=== PATIENT | female | born 1990 | race American Indian/Alaskan Native ===

== ENCOUNTER 2018-09-23 22:53 | Inpatient (IN) | payer OTHER ==
[2018-09-23] MEDS ORDERED: NACL 0.9% 1000 ML 1,000 ML IV ONE (23:38)
[2018-09-23] MEDS ORDERED: TORADOL IV ONE (23:38)
[2018-09-23] MEDS ORDERED: MORPHINE IV ONE (23:38)
[2018-09-23] MEDS ORDERED: DECADRON IV ONE (23:39)
--- NOTE | 2018-09-23 23:42 | Emergency Department Report ---
ED Back Pain/Injury HPI - General Chief Complaint: Back Pain/Injury Stated Complaint: BACK PAIN Time Seen by Provider: 09/23/18 23:21 Source: patient, EMS Limitations: Physical Limitation - History of Present Illness Initial Comments: 28-year-old female presents to ED with lower back pain. The patient states this morning, as she was getting up from bed, she attempted to stand and felt a sudden sharp pain in her lower back. This caused her to collapse to the floor. Patient reports the pain was so extreme, but she was unable to move. Patient states she was on the floor from 9 AM to 12 noon, when her sister arrived. Patient states her sisters were able to help her up. Patient denies radiating pain into the legs,weakness of her legs, numbness or tingling of the legs. Patient denies bowel or bladder incontinence. Reports she took oxycodone and Flexeril. She states she is still having pain, so called EMS for transport to the ER. Patient denies any history of back pain. Denies fever, recent illness. MD Complaint: back pain -: Sudden, This morning Similar Symptoms Previously: No Place: home Radiation: none Severity: severe Quality: sharp Consistency: intermittent Improves With: immobilization Worsens With: movement Associated Symptoms: difficulty walking. denies: weakness, numbness, difficulty urinating, incontinence, fever/chills, abdominal pain Treatments Prior to Arrival: prescription analgesics - Related Data Allergies Allergy/AdvReac Type Severity Reaction Status Date / Time No Known Allergies Allergy Verified 09/24/18 00:43 ED Review of Systems ROS: Stated complaint: BACK PAIN Other details as noted in HPI Comment: All other systems reviewed and negative Constitutional: denies: chills, fever Gastrointestinal: denies: abdominal pain Genitourinary: other (denies incontinence) Musculoskeletal: back pain Neurological: denies: weakness, numbness, paresthesias ED Past Medical Hx - Past Medical History Previous Medical History?: No - Surgical History Past Surgical History?: No - Social History Smoking Status: Never Smoker Substance Use Type: None ED Physical Exam - General Limitations: Physical Limitation General appearance: alert, in no apparent distress - Head Head exam: Present: atraumatic, normocephalic - Eye Eye exam: Present: normal appearance - ENT ENT exam: Present: mucous membranes moist - Neck Neck exam: Present: normal inspection - Respiratory Respiratory exam: Present: normal lung sounds bilaterally. Absent: respiratory distress - Cardiovascular Cardiovascular Exam: Present: regular rate, normal rhythm - GI/Abdominal GI/Abdominal exam: Present: soft. Absent: distended, tenderness - Extremities Exam Extremities exam: Present: normal inspection - Back Exam Back exam: Present: tenderness (midline; lower lumbar region around L5, sacrum), muscle spasm - Neurological Exam Neurological exam: Present: alert, oriented X3. Absent: motor sensory deficit (sensation normal and strength 5/5 in all 4 extremities) - Psychiatric Psychiatric exam: Present: normal affect, normal mood - Skin Skin exam: Present: warm, dry, intact, normal color ED Course Vital Signs 09/23/18 09/23/18 09/23/18 23:20 23:21 23:31 Temperature 98.3 F Pulse Rate 66 Respiratory 16 Rate Blood Pressure 105/69 Blood Pressure 105/69 [Right] O2 Sat by Pulse 82 L 100 100 Oximetry 09/23/18 09/23/18 09/24/18 23:45 23:59 00:01 Temperature Pulse Rate Respiratory Rate Blood Pressure 105/69 113/67 113/67 Blood Pressure [Right] O2 Sat by Pulse 100 100 100 Oximetry 09/24/18 09/24/18 09/24/18 00:05 00:31 01:01 Temperature Pulse Rate Respiratory Rate Blood Pressure 116/67 129/68 112/56 Blood Pressure [Right] O2 Sat by Pulse 100 100 100 Oximetry 09/24/18 09/24/18 09/24/18 01:39 02:15 02:31 Temperature Pulse Rate Respiratory Rate Blood Pressure 121/64 109/61 109/61 Blood Pressure [Right] O2 Sat by Pulse 100 98 98 Oximetry 09/24/18 02:45 Temperature Pulse Rate Respiratory Rate Blood Pressure 104/58 Blood Pressure [Right] O2 Sat by Pulse 99 Oximetry ED Medical Decision Making - Lab Data Result diagrams: 09/23/18 23:47 09/23/18 23:47 - Radiology Data Radiology results: report reviewed, image reviewed - Medical Decision Making 78-year-old female with acute low back pain since this morning. Workup was unremarkable, CT of the lumbar spine is negative. Patient has no neuro deficits on exam, no signs of cauda equina. Patient has been given IV fluids, morphine, Decadron, Toradol, Robaxin. Patient has attempted to get up from supine position, however is unable due to her back spasms. Patient able to move her legs, bend her knees, however unable to tolerate movement of her lower back. I myself stood at bedside, and attempted to slowly raise the head of the stretcher to a sitting position over a course of approximately 10 minutes. However, patient unable to tolerate anything beyond 45. Due to her intractable back pain, will admit to hospitalist. - Differential Diagnosis muscle spasm, fracture, herniated disc Critical care attestation.: If time is entered above; I have spent that time in minutes in the direct care of this critically ill patient, excluding procedure time. ED Disposition Clinical Impression: Acute low back pain, Intractable low back pain Disposition: OP ADMIT IP TO THIS HOSP Is pt being admited?: Yes Condition: Stable Time of Disposition: 03:40
[2018-09-24] MEDS ORDERED: ZOFRAN IV ONE
[2018-09-24] MEDS ORDERED: ZOFRAN ONE (00:01)
[2018-09-24 00:14] LABS: Basophils % (Auto) 0.2 % (0.0-1.8); Eosinophils % (Auto) 0.2 % (0.0-4.3); Hematocrit 39.1 % (30.3-42.9); Hemoglobin 13.4 gm/dl (10.1-14.3); Lymphocytes # (Auto) 1.3 K/mm3 (1.2-5.4); Lymphocytes % (Auto) 20.5 % (13.4-35.0); Mean Corpuscular HGB Conc 34 % (30-34); Mean Corpuscular Volume 85 fl (79-97); Monocytes # (Auto) 0.3 K/mm3 (0.0-0.8); Platelet Count 311 K/mm3 (140-440); Red Blood Count 4.58 M/mm3 (3.65-5.03); Red Cell Distribution Width 13.6 % (13.2-15.2)
[2018-09-24 00:28] LABS: BUN/Creatinine Ratio 18; Blood Urea Nitrogen 7 mg/dL (7-17); Calcium 8.9 mg/dL (8.4-10.2); Hemolysis Index 3
[2018-09-24] MEDS ORDERED: ROBAXIN PO ONE (01:44)
--- NOTE | 2018-09-24 01:57 | Cat Scan Report ---
PROCEDURE: CT LUMBAR SPINE W CON TECHNIQUE: Computerized axial tomography of the lumbar spine was performed from T12 to the sacrum wi thout contrast material. CT DOSE LENGTH PRODUCT: 593 mGycm HISTORY: back pain COMPARISONS: None . FINDINGS: The alignment of the vertebral segments is normal. The heights of the vertebral bodies and the disc s paces are maintained. No acute fracture or dislocation of the lumbar spine. The spinal canal is adequ ate at all levels. L1-2: No significant abnormality . L2-3: No significant abnormality . L3-4: No significant abnormality . L4-5: No significant abnormality . L5-S1: No significant abnormality . Other: None . IMPRESSION: Normal CT lumbar spine . This document is electronically signed by Livia Armando DO., September 24 2018 01:55:35 AM ET
[2018-09-24] MEDS ORDERED: DILAUDID IV PRN (04:06)
[2018-09-24] MEDS ORDERED: ZOFRAN IV PRN (04:07)
[2018-09-24] MEDS ORDERED: FLEXERIL PO PRN (04:08)
[2018-09-24] MEDS ORDERED: TYLENOL PO PRN (04:17)
--- NOTE | 2018-09-24 04:34 | History and Physical Report ---
CHIEF COMPLAINT: Low back pain. HISTORY OF PRESENT ILLNESS: The patient is a 28-year-old female who said that she was on her bed working on her laptop and then turned to get out of bed and then suddenly started having sharp lower back pain with some spasm and was unable to bear weight and ambulate. The patient denies history of recent trauma or history of lifting of heavy weight or history of engaging in strenuous exercise. There is no history of tingling or numbness in the lower extremities. The patient also denies history of weakness of the lower or urinary incontinence, but has sharp pain whenever she tries to get out of bed and has been unable to get out of bed currently. There is no history of fever or chills. PAST MEDICAL HISTORY: Unremarkable. PAST SURGICAL HISTORY: Unremarkable. FAMILY HISTORY: Noncontributory. SOCIAL HISTORY: The patient does not smoke, does not drink alcohol and does not use illicit drugs. MEDICATIONS: The patient is taking [id number] nonsteroidal anti-inflammatory agent. ALLERGIES: There are no known drug allergies. REVIEW OF SYSTEMS: CONSTITUTIONAL: There is no fever, no chills, no diaphoresis. HEENT: There is no headache or sore throat. CARDIOVASCULAR: There is no chest pain or orthopnea. RESPIRATORY SYSTEM: There is no shortness of breath or cough. GASTROINTESTINAL SYSTEM: There is no nausea, no vomiting, no abdominal pain, diarrhea or constipation. NEUROLOGICAL SYSTEM: There is no numbness, no dizziness, no altered mental status. MUSCULOSKELETAL SYSTEM: Lower back pain present. No joint swelling. DERMATOLOGICAL SYSTEM: There is no skin rash or itching. GENITOURINARY SYSTEM: There is no dysuria, hematuria or flank pain. Rest of system review is normal. PHYSICAL EXAMINATION: GENERAL: At the time of exam, the patient was found to be alert, oriented x 3 and in mild to moderate distress due to lower back pain. VITAL SIGNS: At the initial time of presentation show temperature of 98.3 degrees Fahrenheit, pulse of 66, respirations 16, blood pressure 105/69, O2 sat of 100% on room air. HEENT: Show pupils to be equal, round, reactive to light and accommodating. Extraocular muscles are intact. NECK: Supple with no JVD or carotid bruit. CARDIOVASCULAR: Showed normal first and second heart sounds with no gallops or murmur. RESPIRATORY SYSTEM: Show good air entry on both sides of the lungs with no abnormal breath sounds. GASTROINTESTINAL SYSTEM: Show abdomen to be full, soft, nontender with no organomegaly or rigidity. NEUROLOGIC: Exam shows no focal deficits. MUSCULOSKELETAL: Show no joint swelling or tenderness. Straight leg raising sign is positive at about 30 degrees on both lower extremities. There is no joint tenderness or swelling. NEUROVASCULAR SYSTEM: Intact. DERMATOLOGICAL SYSTEM: Show no focal deficit. GENITOURINARY SYSTEM: Show no costovertebral angle tenderness. PERTINENT LABORATORY AND IMAGING STUDIES: The patient has CBC done that came back unremarkable. The patient's chemistry was unremarkable. test was negative. IMAGING STUDIES: The patient had CT of the lumbar spine done that came back unremarkable. DIAGNOSIS: Intractable low back pain. PLAN OF CARE: 1. The patient will be admitted to medical/surgical [facility]. 2. The patient will have physical therapy consult for evaluation and treatment this morning to help the patient with low back pain and ambulation. 3. The patient will be on Flexeril, cyclobenzaprine 10 mg by mouth 3 times daily as needed for pain and will be on IV Dilaudid 1 mg every 4 hours as needed for pain. 4. The patient will be on Zofran 4 mg IV every 6 hours as needed for nausea and vomiting and will be on Tylenol 650 mg by mouth every 4 hours for fever and headache. 5. The patient's diet will be regular diet. JOB# [id number] OCN/TIM MTDD
[2018-09-24 12:38] VITALS: BP 103/61
--- NOTE | 2018-09-24 13:52 | Event Note ---
Date: 09/24/18
--- NOTE | 2018-09-24 14:28 | Discharge Summary ---
Providers - Providers Date of Admission: 09/24/18 04:10 Date of discharge: 09/24/18 Attending physician: MORTEZA ESPITIA 09/24/18 04:05 Physical Therapy Evaluation and Treat [CONS] Routine Comment: Reason For Exam: LOW BACK PAIN WITH INABILITY TO AMBULATE Primary care physician: LEEANNA ROLLINS Hospitalization Condition: Stable Pertinent studies: CT lumber spine: normal Hospital course: This is a 28 y/o female w/o no prior medical presented to ER with sudden onset lumber back pain while she was at work. Her lumber CT was normal, PT recommended outpt f/u if needed. Patient was then discharged home in stable condition. Discharge diagnosis: Severe back pain, due to muscle spasm Disposition: DC-01 TO HOME OR SELFCARE Time spent for discharge: 34 minutes Core Measure Documentation - Palliative Care Palliative Care/ Comfort Measures: Not Applicable - Core Measures Any of the following diagnoses?: none Exam - Constitutional Vitals: Temp Pulse Resp BP Pulse Ox 98.0 F 57 L 18 103/61 97 09/24/18 11:13 09/24/18 11:13 09/24/18 11:13 09/24/18 11:13 09/24/18 11:13 General appearance: Present: no acute distress, well-nourished - EENT Eyes: Present: PERRL ENT: hearing intact, clear oral mucosa - Neck Neck: Present: supple, normal ROM - Respiratory Respiratory effort: normal Respiratory: bilateral: CTA - Cardiovascular Heart Sounds: Present: S1 & S2. Absent: rub, click - Extremities Extremities: pulses symmetrical, No edema Peripheral Pulses: within normal limits - Abdominal General gastrointestinal: Present: soft, non-tender, non-distended, normal bowel sounds - Integumentary Integumentary: Present: clear, warm, dry - Musculoskeletal Musculoskeletal: gait normal, strength equal bilaterally - Psychiatric Psychiatric: appropriate mood/affect, intact judgment & insight - Neurologic Neurologic: CNII-XII intact, moves all extremities Plan Activity: advance as tolerated Weight Bearing Status: Non-Weight Bearing Diet: regular Follow up with: KVNG HARTMAN MD [Referring] - 3-5 Days Prescriptions: Cyclobenzaprine [Flexeril 10 MG TAB] 10 mg PO TID PRN #10 tablet PRN Reason: Pain , Severe (7-10)
[2018-09-24] MEDS ORDERED: LOVENOX SUB-Q SCH (22:00)
== END 2018-09-24 16:35 | disposition home or self-care (01) | DRG 552 ==
LOC: ED 22:53 → 3A 09-24 04:10
PROVIDERS: ADMIT Internal Medicine; ATTEND Internal Medicine
DX: M62.830 Muscle spasm of back (principal)
CPT/HCPCS: 36415; 72132; 80048; 82550; 84703; 85025; 96374; 96375; 99285; G0378; J1100; J1885; J2270; J2405; J7030; Q9967

== ENCOUNTER 2018-12-31 00:48 | Emergency (ER) | payer MEDICAID, OTHER ==
[2018-12-31 01:31] LABS: Basophils % (Auto) 0.3 % (0.0-1.8); Eosinophils # (Auto) 0.1 K/mm3 (0.0-0.4); Eosinophils % (Auto) 0.5 % (0.0-4.3); Hematocrit 34.6 % (30.3-42.9); Hemoglobin 11.8 gm/dl (10.1-14.3); Lymphocytes # (Auto) 2.1 K/mm3 (1.2-5.4); Lymphocytes % (Auto) 21.5 % (13.4-35.0); Mean Corpuscular HGB Conc 34 % (30-34); Mean Corpuscular Volume 86 fl (79-97); Monocytes # (Auto) 0.5 K/mm3 (0.0-0.8); Monocytes % (Auto) 5.6 % (0.0-7.3); Platelet Count 276 K/mm3 (140-440); Red Blood Count 4.01 M/mm3 (3.65-5.03); Red Cell Distribution Width 14.5 % (13.2-15.2)
[2018-12-31 02:36] LABS: Bilirubin,Urine NEG (Negative); Blood,Urine NEG (Negative); Color,Urine Straw (Yellow); Mucus,Urine FEW /HPF; Protein,Urine <15 mg/dL mg/dL (Negative); Urobilinogen,Urine < 2.0 mg/dL (<2.0)
--- NOTE | 2018-12-31 02:48 | Ultrasound Report ---
PROCEDURE: US OB <= 14 WEEKS FETUS TECHNIQUE: Transabdominal imaging was obtained of the pelvis including Doppler interrogation of the uterus and adnexa. HISTORY: abdoninal pain COMPARISONS: None FINDINGS: The uterus is anteverted measuring 10.9 x 7.3 x 8.2 cm. Within the uterus is a well formed gestationa l sac which contains an embryo. The crown-rump length is 48.9 mm corresponding to an 11 week 6 day IU P. The heart rate is 169 BPM. There is no evidence of a subchorionic hemorrhage. The placenta i s fundal in position. Free fluid is not seen. The ovaries are appropriate in size contour blood flow and echotexture. The right ovary measures 2.3 x 2.2 x 2.0 cm. The left ovary measures 2.5 x 1.7 x 2.0 cm. IMPRESSION: Single viable IUP, 11 weeks 6 days. The heart rate is 169 BPM. Normal-appearing maternal ovaries. No evidence of ovarian torsion.. This document is electronically signed by Laron Romo MD., December 31 2018 02:46:22 AM ET
[2018-12-31 03:11] LABS: Alanine Aminotransferase 9 units/L (7-56); Albumin 3.6 g/dL (3.9-5); BUN/Creatinine Ratio 12; Blood Urea Nitrogen 6 mg/dL (7-17); Calcium 9.4 mg/dL (8.4-10.2); Hemolysis Index 5
--- NOTE | 2018-12-31 03:32 | Emergency Department Report ---
HPI - General Chief Complaint: Abdominal Pain Time Seen by Provider: 12/31/18 02:10 - HPI HPI: 28-year-old female presents to the emergency department with complaint of some pelvic pain and cramping while . The patient is . She denies any vaginal bleeding, vaginal discharge, dysuria, fever, back pain. She has had some sporadic abdominal cramping during her first trimester but today she says that the cramping was much more intense and more painful. She says that it felt like it was hot internally in her pelvis. For these reasons patient came in for further evaluation. She follows with [facility]. She has not taken any thing for her symptoms prior to presentation. ED Past Medical Hx - Past Medical History Previous Medical History?: No Hx Heart Attack/AMI: No Hx Congestive Heart Failure: No Hx Diabetes: No Hx Asthma: No Hx COPD: No Hx HIV: No - Surgical History Past Surgical History?: No - Social History Smoking Status: Never Smoker Substance Use Type: None - Medications Home Medications: Home Medications Medication Instructions Recorded Confirmed Last Taken Type Cyclobenzaprine [Flexeril 10 MG 10 mg PO TID PRN #10 tablet 09/24/18 Unknown Rx TAB] ED Review of Systems ROS: Stated complaint: L PELVIC PAIN Other details as noted in HPI Comment: All other systems reviewed and negative Constitutional: denies: chills, fever Eyes: denies: eye pain, vision change ENT: denies: ear pain, throat pain Respiratory: denies: cough, shortness of breath Cardiovascular: denies: chest pain, palpitations Gastrointestinal: abdominal pain, nausea. denies: vomiting Genitourinary: other (pelvic cramping). denies: dysuria, discharge Musculoskeletal: denies: back pain, arthralgia Neurological: denies: headache, weakness Physical Exam - Physical Exam Vital Signs: Vital Signs 12/31/18 00:52 Temperature 97.9 F Pulse Rate 77 Respiratory 18 Rate Blood Pressure 118/64 O2 Sat by Pulse 99 Oximetry Physical Exam: GENERAL: The patient is well-developed well-nourished. HENT: Normocephalic. Atraumatic. Patient has moist mucous membranes. EYES: Extraocular motions are intact. NECK: Supple. Trachea is midline. CHEST/LUNGS: Clear to auscultation. There is no respiratory distress noted. HEART/CARDIOVASCULAR: Regular. There is no tachycardia. There is no murmur. ABDOMEN: Abdomen is soft, nontender. Patient has normal bowel sounds. There is no abdominal distention. SKIN: Skin is warm and dry. NEURO: The patient is awake, alert, and oriented. The patient is cooperative. The patient has no focal neurologic deficits. The patient has normal speech. MUSCULOSKELETAL: There is no tenderness or deformity. There is no evidence of acute injury. ED Course Vital Signs 12/31/18 00:52 Temperature 97.9 F Pulse Rate 77 Respiratory 18 Rate Blood Pressure 118/64 O2 Sat by Pulse 99 Oximetry ED Medical Decision Making - Lab Data Result diagrams: 12/31/18 01:16 12/31/18 01:18 - Radiology Data Radiology results: report reviewed PROCEDURE: US OB <= 14 WEEKS FETUS TECHNIQUE: Transabdominal imaging was obtained of the pelvis including Doppler interrogation of the uterus and adnexa. HISTORY: abdoninal pain COMPARISONS: None FINDINGS: The uterus is anteverted measuring 10.9 x 7.3 x 8.2 cm. Within the uterus is a well formed gestational sac which contains an embryo. The crown-rump length is 48.9 mm corresponding to an 11 week 6 day IUP. The heart rate is 169 BPM. There is no evidence of a subchorionic hemorrhage. The placenta is fundal in position. Free fluid is not seen. The ovaries are appropriate in size contour blood flow and echotexture. The right ovary measures 2.3 x 2.2 x 2.0 cm. The left ovary measures 2.5 x 1.7 x 2.0 cm. IMPRESSION: Single viable IUP, 11 weeks 6 days. The heart rate is 169 BPM. Normal-appearing maternal ovaries. No evidence of ovarian torsion.. This document is electronically signed by Laron Romo MD., December 31 2018 02:46:22 AM ET Transcribed By: RB Dictated By: LARON ROMO MD Electronically Authenticated By: LARON ROMO MD Signed Date/Time: 12/31/18 0248 - Medical Decision Making This patient presents to the emergency department with complaint of some increased pelvic pain and cramping while . No vaginal bleeding. Labs have been unremarkable. Beta hCG of about 75,000. No signs of any urinary tract infection. Vital signs stable throughout her ED course. Ultrasound shows a live intrauterine at about 11 weeks and 6 days. The patient has good follow-up with primary [facility]. She will be discharged to follow-up with her [facility] in the next few days and will return to the ER with any worsening of her symptoms or any acute distress. - Differential Diagnosis , miscarriage, torsion, fibroids, UTI Critical Care Time: No Critical care attestation.: If time is entered above; I have spent that time in minutes in the direct care of this critically ill patient, excluding procedure time. ED Disposition Clinical Impression: Pelvic pain during Qualifiers: Weeks of gestation: 11 weeks Qualified Code(s): Z3A.11 - 11 weeks gestation of Disposition: DC- TO HOME OR SELFCARE Is pt being admited?: No Condition: Stable Instructions: (ED), Abdominal Pain (ED) Additional Instructions: Please follow-up with your [facility] in the next few days. Return to the emergency Department with any worsening of your symptoms, development of vaginal bleeding, or with any acute distress. You can take Tylenol every 4-6 hours, using weight- based dosing, as needed for discomfort. Referrals: [facility] [Provider Group] - 2-3 Days Time of Disposition: 03:31
[2018-12-31 04:03] VITALS: BP 104/64
== END 2018-12-31 04:02 | disposition home or self-care (01) ==
LOC: ED 00:48
DX: O26.891 Other specified pregnancy related conditions, first trimester (principal); R10.2 Pelvic and perineal pain; Z3A.11 11 weeks gestation of pregnancy
CPT/HCPCS: 36415; 76801; 80053; 81001; 84702; 85025

== ENCOUNTER 2019-01-27 00:26 | Emergency (ER) | payer MEDICAID ==
[2019-01-27 01:06] LABS: Basophils % (Auto) 0.2 % (0.0-1.8); Eosinophils % (Auto) 0.3 % (0.0-4.3); Hematocrit 33.9 % (30.3-42.9); Hemoglobin 11.7 gm/dl (10.1-14.3); Lymphocytes # (Auto) 1.7 K/mm3 (1.2-5.4); Lymphocytes % (Auto) 17.2 % (13.4-35.0); Mean Corpuscular HGB Conc 35 % (30-34); Mean Corpuscular Volume 85 fl (79-97); Monocytes # (Auto) 0.5 K/mm3 (0.0-0.8); Monocytes % (Auto) 4.7 % (0.0-7.3); Platelet Count 292 K/mm3 (140-440); Red Blood Count 3.98 M/mm3 (3.65-5.03); Red Cell Distribution Width 13.9 % (13.2-15.2)
[2019-01-27 01:29] LABS: Amorphous Crystals,Urine Few; Bilirubin,Urine NEG (Negative); Blood,Urine NEG (Negative); Color,Urine Yellow (Yellow); Mucus,Urine FEW /HPF; Protein,Urine <15 mg/dL mg/dL (Negative); Urobilinogen,Urine < 2.0 mg/dL (<2.0)
[2019-01-27 02:21] LABS: WBC,Urine < 1.0 /HPF (0.0-6.0)
[2019-01-27] MEDS ORDERED: TYLENOL PO ONE (02:38)
--- NOTE | 2019-01-27 03:22 | Emergency Department Report ---
ED Abdominal Pain HPI - General Chief Complaint: Abdominal Pain Stated Complaint: PELVIC AND ABD CRAMPING HEADACHE Time Seen by Provider: 01/27/19 02:36 Source: patient Mode of arrival: Ambulatory Limitations: No Limitations - History of Present Illness Initial Comments: Patient is a 28-year-old female A0 is currently 16 weeks states she started having contractions and pain today has been no vaginal bleeding or discharge no fever no chills no nausea vomiting abdominal cramping is described at 5/10 pain is exacerbated by movement and position and is relieved by nothing there is no dysuria no hematuria no vaginal bleeding noted since symptoms onset patient states she is unable to get into the [facility] there is no nausea vomiting patient is tolerating by mouth intake. MD Complaint: abdominal pain Onset/Timin -: days(s) Location: LLQ, RLQ Radiation: LLQ, RLQ Migration to: LLQ, RLQ Severity scale (0 -10): 8 Quality: cramping Consistency: intermittent Improves With: nothing Worsens With: movement Associated Symptoms: denies: nausea, vomiting, diarrhea, fever, chills, constipation, dysuria, melena - Related Data LMP Date: 09/20/18 Previous Rx's Medication Instructions Recorded Last Taken Type Cyclobenzaprine [Flexeril 10 MG 10 mg PO TID PRN #10 tablet 09/24/18 Unknown Rx TAB] Acetaminophen [Acetaminophen TAB] 650 mg PO Q6HR PRN #30 tablet 01/27/19 Unknown Rx Allergies Allergy/AdvReac Type Severity Reaction Status Date / Time No Known Allergies Allergy Verified 09/24/18 00:43 ED Review of Systems ROS: Stated complaint: PELVIC AND ABD CRAMPING HEADACHE Other details as noted in HPI Constitutional: denies: chills, fever Eyes: denies: eye pain, eye discharge, vision change ENT: denies: ear pain, throat pain Respiratory: denies: cough, shortness of breath, wheezing Cardiovascular: denies: chest pain, palpitations Endocrine: no symptoms reported Gastrointestinal: abdominal pain. denies: nausea, vomiting, diarrhea, constipation, melena, hematochezia Genitourinary: denies: urgency, dysuria, discharge Musculoskeletal: denies: back pain, joint swelling, arthralgia Skin: denies: rash, lesions Neurological: denies: headache, weakness, paresthesias Psychiatric: denies: anxiety, depression Hematological/Lymphatic: denies: easy bleeding, easy bruising ED Past Medical Hx - Past Medical History Previous Medical History?: No Hx Heart Attack/AMI: No Hx Congestive Heart Failure: No Hx Diabetes: No Hx Asthma: No Hx COPD: No Hx HIV: No - Surgical History Past Surgical History?: No - Social History Smoking Status: Never Smoker Substance Use Type: None - Medications Home Medications: Home Medications Medication Instructions Recorded Confirmed Last Taken Type Cyclobenzaprine [Flexeril 10 MG 10 mg PO TID PRN #10 tablet 09/24/18 Unknown Rx TAB] Acetaminophen [Acetaminophen TAB] 650 mg PO Q6HR PRN #30 tablet 01/27/19 Unknown Rx ED Physical Exam - General Limitations: No Limitations General appearance: alert, in no apparent distress - Head Head exam: Present: atraumatic, normocephalic - Eye Eye exam: Present: normal appearance, PERRL, EOMI Pupils: Present: normal accommodation - ENT ENT exam: Present: mucous membranes moist. Absent: normal external ear exam - Neck Neck exam: Present: normal inspection, full ROM. Absent: tenderness, lymphadenopathy, thyromegaly - Respiratory Respiratory exam: Present: normal lung sounds bilaterally. Absent: respiratory distress, wheezes, stridor, chest wall tenderness - Cardiovascular Cardiovascular Exam: Present: regular rate, normal rhythm, normal heart sounds. Absent: systolic murmur, diastolic murmur, rubs, gallop - GI/Abdominal GI/Abdominal exam: Present: soft, normal bowel sounds. Absent: distended, tenderness, guarding, rebound, rigid, bruit, hernia - Rectal Rectal exam: Present: deferred - External exam: Present: other (deferred per patient ) - Extremities Exam Extremities exam: Present: normal inspection - Back Exam Back exam: Present: normal inspection, full ROM. Absent: tenderness, CVA tenderness (R), CVA tenderness (L), muscle spasm, paraspinal tenderness, rash noted - Neurological Exam Neurological exam: Present: alert, oriented X3, CN II-XII intact, normal gait. Absent: reflexes normal - Psychiatric Psychiatric exam: Present: normal affect, normal mood - Skin Skin exam: Present: warm, dry, intact, normal color. Absent: rash ED Course Vital Signs 01/27/19 00:35 Temperature 98.7 F Pulse Rate 72 Respiratory 16 Rate O2 Sat by Pulse 98 Oximetry ED Medical Decision Making - Lab Data Result diagrams: 01/27/19 00:55 Labs 01/27/19 01/27/19 01/27/19 00:55 00:55 01:05 WBC 9.9 RBC 3.98 Hgb 11.7 Hct 33.9 MCV 85 MCH 29 MCHC 35 H RDW 13.9 Plt Count 292 Lymph % (Auto) 17.2 [place] % (Auto) 4.7 Eos % (Auto) 0.3 Baso % (Auto) 0.2 Lymph # 1.7 [place] # 0.5 Eos # 0.0 Baso # 0.0 Seg Neutrophils % 77.6 H Seg Neutrophils # 7.7 HCG, Quant [id number] H Urine Color Yellow Urine Turbidity Slightly-cloudy Urine pH 7.0 Ur Specific [place] 1.017 Urine Protein <15 mg/dl Urine Glucose (UA) Neg Urine Ketones Neg Urine Blood Neg Urine Nitrite Neg Urine Bilirubin Neg Urine Urobilinogen < 2.0 Ur Leukocyte Esterase Neg Urine WBC (Auto) < 1.0 Urine RBC (Auto) 2.0 U Epithel Cells (Auto) 2.0 Amorphous Crystals Few Urine Mucus Few - Radiology Data Radiology results: report reviewed, image reviewed Ordering Physician: ASHLEY STEINBERG NP Date of Service: 01/27/19 Procedure(s): US OB >= 14 weeks Fetus Accession Number(s): [id number] cc: ASHLEY STEINBERG NP US OB >= 14 weeks Fetus INDICATION / CLINICAL INFORMATION: abd pain. COMPARISON: 12/31/2018 FINDINGS: Viable single intrauterine gestation in the breech presentation. Heart rate 1 45 bpm The placenta is grade 0 and fundal, free of the os. LUISA 4.7 measurements: BPD 2.9 equal to 15 weeks 2 days Head circumference 10.7 equals to 15 weeks 1 day Abdominal circumference 9.2 equals to 15 weeks 3 days Femur length 1.6842 14 weeks 5 days Ovaries are normal. Cervical length 3.6 cm IMPRESSION: 1. Viable breech fetus with average gestational age 15 weeks 3 days. Signer Name: Conner Gordon MD Signed: 01/27/2019 4:48 AM Workstation Name: [id number] Transcribed By: GA Dictated By: Conner Gordon MD Electronically Authenticated By: Conner Gordon MD Signed Date/Time: 01/27/19447 DD/ 4 TD/TT: - Medical Decision Making US: single IUP intact 15 weeks and 3 days labs normal, pain improved with tylenol pt will follow up with OBGYN today. pt will be dc'd to home in stable condition at this time. Critical care attestation.: If time is entered above; I have spent that time in minutes in the direct care of this critically ill patient, excluding procedure time. ED Disposition Clinical Impression: Abdominal pain during Qualifiers: Trimester: second trimester Qualified Code(s): O26.892 - Other specified related conditions, second trimester; R10.9 - Unspecified abdominal pain Disposition: DC-01 TO HOME OR SELFCARE Is pt being admited?: No Does the pt Need Aspirin: No Condition: Stable Instructions: Abdominal Pain (ED) Prescriptions: Acetaminophen [Acetaminophen TAB] 650 mg PO Q6HR PRN #30 tablet PRN Reason: Pain Referrals: [facility] [Provider Group] - [facility] Forms: Work/School Release Form(ED) Time of Disposition: 05:08
--- NOTE | 2019-01-27 04:52 | Ultrasound Report ---
US OB >= 14 weeks Fetus INDICATION / CLINICAL INFORMATION: abd pain. COMPARISON: 12/31/2018 FINDINGS: Viable single intrauterine gestation in the breech presentation. Heart rate 1 45 bpm The placenta is grade 0 and fundal, free of the os. LUISA 4.7 measurements: BPD 2.9 equal to 15 weeks 2 days Head circumference 10.7 equals to 15 weeks 1 day Abdominal circumference 9.2 equals to 15 weeks 3 days Femur length 1.6842 14 weeks 5 days Ovaries are normal. Cervical length 3.6 cm IMPRESSION: 1. Viable breech fetus with average gestational age 15 weeks 3 days. Signer Name: Conner Gordon MD Signed: 01/27/2019 4:48 AM Workstation Name: [id number]
== END 2019-01-27 05:16 | disposition home or self-care (01) ==
LOC: ED 00:26
DX: O26.892 Other specified pregnancy related conditions, second trimester (principal); R10.31 Right lower quadrant pain; R10.32 Left lower quadrant pain; Z3A.16 16 weeks gestation of pregnancy
CPT/HCPCS: 36415; 76805; 81001; 84702; 85025; 86900; 86901; 99284

== ENCOUNTER 2019-04-07 19:05 | Outpatient (CLI) | payer MEDICAID ==
[2019-04-07] MEDS ORDERED: LACTATED RINGERS 500 ML IV ONE (20:11)
[2019-04-07 21:11] VITALS: BP 97/64
--- NOTE | 2019-04-07 21:32 | Ultrasound Report ---
Biophysical profile INDICATION: Possible lack of motion Intrauterine is noted in a breech position. Cardiac activity was documented with hear t rate of 138 bpm. Placenta is posterior and free of the internal cervical os. breathing movements, movements, posturing:, And qualitative amniotic fluid volume a re all within normal limits with scores of 2/2 for total score of 8/8 which is within normal limits. Signer Name: Ronny Snyder MD Signed: 04/07/2019 9:28 PM Workstation Name: [id number]
== END 2019-04-07 21:16 | disposition home or self-care (01) ==
LOC: TRG 19:05
PROVIDERS: ATTEND Obstetrics & Gynecology
DX: O36.8120 Decreased fetal movements, second trimester, not applicable or unspecified (principal); Z3A.24 24 weeks gestation of pregnancy
CPT/HCPCS: 76819

== ENCOUNTER 2019-06-30 10:56 | Outpatient (CLI) | payer MEDICAID ==
[2019-06-30 11:23] VITALS: BP 115/60
[2019-06-30] MEDS ORDERED: LACTATED RINGERS 1,000 ML IV SCH (12:00)
[2019-06-30 12:14] LABS: Bacteria,Urine 1+ /HPF (Negative); Bilirubin,Urine NEG (Negative); Blood,Urine NEG (Negative); Color,Urine Straw (Yellow); Protein,Urine <15 mg/dL mg/dL (Negative); Urobilinogen,Urine < 2.0 mg/dL (<2.0)
--- NOTE | 2019-06-30 12:47 | Ultrasound Report ---
Limited OB Ultrasound BPP HISTORY: c/o decreased fm. TECHNIQUE: Grayscale and color Doppler imaging performed. COMPARISON: Limited ultrasound from 04/07/2019 FINDINGS: There is a single viable intrauterine gestation which is cephalic in presentation. LUISA is 1 1 cm. Placenta is positioned posteriorly with no evidence of placenta previa. Heart rate is 166 bpm. age was not determined on this exam. On BPP evaluation, the fetus received a score of 2 out of 2 for breathing movement, movement, posture /tone, and LUISA. Total score was 8 out of 8. IMPRESSION: 1. Single viable intrauterine gestation as above. No acute abnormality. 2. Normal BPP. Signer Name: Miguel Pena MD Signed: 06/30/2019 12:42 PM Workstation Name: [id number]
== END 2019-06-30 13:13 | disposition home or self-care (01) ==
LOC: TRG 10:56
PROVIDERS: ATTEND Obstetrics & Gynecology
DX: O47.1 False labor at or after 37 completed weeks of gestation (principal); Z3A.37 37 weeks gestation of pregnancy
CPT/HCPCS: 59025; 76815; 76819; 81001